=== PATIENT | female | born 1980 | race Two or more races ===

== ENCOUNTER 2017-01-11 15:37 | Outpatient (CLI) ==
[2016-05-11 17:59] VITALS: BMI 36.3
== END 2017-01-11 15:38 | disposition home or self-care (01) ==
LOC: LAB 15:37
PROVIDERS: ATTEND Internal Medicine Hematology & Oncology
DX: Z00.5 Encounter for examination of potential donor of organ and tissue (principal)
CPT/HCPCS: 36415